=== PATIENT | male | born 1950 | race Caucasian/White ===

== ENCOUNTER 2021-04-12 07:09 | Day surgery (SDC) | payer MEDICARE, OTHER ==
[~2021-04-12] VITALS: Ht 172.7 cm; Wt 83.0 kg
[~2021-04-12 07:09] MED LIST: ELIQUIS5 M2 PO
[2021-04-12] MEDS ORDERED: ELIQUIS5 M2 PO (10:13)
--- NOTE | 2021-04-12 11:46 | NUR ---
R POPITEAL PURSE STRING SUTURES REMOVED. -BLEEDING OR SWELLING.
--- NOTE | 2021-04-12 11:49 | NUR ---
PT VERBALIZED UNDERSTANDING OF WRITTEN AND VERBAL D/C INST. IV REMOVED. PT TAKEN OUT OF THE HRT CENTER VIA W/C.
== END 2021-04-12 11:30 | disposition home or self-care (01) ==
LOC: MHTC 07:09
DX: I82.401 Acute embolism and thrombosis of unspecified deep veins of right lower extremity (principal); Z86.711 Personal history of pulmonary embolism; Z79.01 Long term (current) use of anticoagulants
CPT/HCPCS: 76937; 99152; 99153; C1725; C1753; C1757; C1769; C1887; C1894; J1644; J2250; J3010; J7030; Q9967

== ENCOUNTER 2024-06-27 21:05 | Emergency (ER) | payer MEDICARE ==
[~2024-06-27] VITALS: Ht 172.7 cm; Wt 81.7 kg
[~2024-06-27 21:05] MED LIST changes: +ATOR20 PO; +BUPR75
[2024-06-28] VITALS: BP 103/73
== END 2024-06-28 00:30 | disposition home or self-care (01) ==
LOC: ER 21:05
DX: M79.652 Pain in left thigh (principal); Z79.899 Other long term (current) drug therapy
CPT/HCPCS: 93971; 99283-25